=== PATIENT | male | born 1985 ===

== ENCOUNTER 2021-11-24 23:16 | Emergency (ER) | payer SELFPAY ==
[2021-11-24] MEDS ORDERED: ONDANSETRON 4 MG/2 ML INJ IV ONE (23:38)
[2021-11-24] MEDS ORDERED: SODIUM CHLORIDE 0.9% 1000 ML 1,000 ML IV ONE (23:38)
--- NOTE | 2021-11-24 23:59 | Emergency Department Report ---
HPI - General Chief Complaint: Overdose Time Seen by Provider: 11/24/21 23:32 - HPI HPI: Room 23 Patient is a 36-year-old male present with a chief complaint of suspected heroin overdose. EMS received a call for an unresponsive patient at a hotel. Upon their arrival states the patient was unresponsive on the bed next to a "white powdery substance" suspected to be heroin. EMS established an IV and administered a total of Narcan 4 mg which resulted in the patient waking up. Patient is now alert and states he is just confused on how he arrived in the emergency department. Otherwise patient denies having any complaints. ED Past Medical Hx - Past Medical History Previous Medical History?: No - Surgical History Past Surgical History?: No - Family History Family history: no significant - Social History Smoking Status: Never Smoker Substance Use Type: Alcohol (Occasional), Heroin (? Per EMS) - Medications Home Medications: Home Medications Medication Instructions Recorded Confirmed Last Taken Type Naloxone HCl [Narcan Nasal [place]] 4 mg NS ONCE PRN #1 bottle 11/25/21 Unknown Rx Ondansetron [Zofran ODT TAB] 8 mg PO Q8HR PRN #20 tab.rapdis 11/25/21 Unknown Rx ED Review of Systems ROS: Stated complaint: OVERDOSE Other details as noted in HPI Constitutional: no symptoms reported Eyes: denies: eye pain ENT: denies: throat pain Respiratory: no symptoms reported Cardiovascular: denies: chest pain Endocrine: no symptoms reported Gastrointestinal: denies: abdominal pain Genitourinary: denies: dysuria Musculoskeletal: denies: back pain Neurological: denies: headache Physical Exam - Physical Exam Vital Signs: Vital Signs 11/24/21 11/24/21 23:25 23:42 Temperature 99.8 F H Pulse Rate 96 H Respiratory 18 15 Rate Blood Pressure 114/68 O2 Sat by Pulse 94 97 Oximetry Physical Exam: GENERAL: The patient is well-developed well-nourished male lying on stretcher not appearing to be in acute distress. [] HEENT: Normocephalic. Atraumatic. Extraocular motions are intact. Patient has moist mucous membranes. NECK: Supple. Trachea midline CHEST/LUNGS: Clear to auscultation. There is no respiratory distress noted. HEART/CARDIOVASCULAR: Regular. There is tachycardia. There is no gallop rub or murmur. ABDOMEN: Abdomen is soft, nontender. Patient has normal bowel sounds. There is no abdominal distention. SKIN: There is no rash. There is no edema. There is no diaphoresis. NEURO: The patient is awake, alert, and oriented. The patient is cooperative. The patient has no focal neurologic deficits. The patient has normal speech. GCS 15 MUSCULOSKELETAL: There is no evidence of acute injury. ED Course Vital Signs 11/24/21 11/24/21 23:25 23:42 Temperature 99.8 F H Pulse Rate 96 H Respiratory 18 15 Rate Blood Pressure 114/68 O2 Sat by Pulse 94 97 Oximetry - Reevaluation(s) Reevaluation #1: 11/25/21 05:10 Patient states he feels improved ED Medical Decision Making - Lab Data Result diagrams: 11/25/21 00:49 11/25/21 00:49 Laboratory Tests 11/25/21 11/25/21 11/25/21 00:49 00:49 00:49 WBC 15.5 H RBC 4.69 Hgb 15.2 Hct 44.1 MCV 94 MCH 32 MCHC 35 H RDW 12.5 L Plt Count 263 Lymph % (Auto) 9.5 L [place] % (Auto) 5.9 Eos % (Auto) 0.1 Baso % (Auto) 0.1 Lymph # (Auto) 1.5 [place] # (Auto) 0.9 H Eos # (Auto) 0.0 Baso # (Auto) 0.0 Seg Neutrophils % 84.4 H Seg Neutrophils # 13.0 H Sodium 141 Potassium 4.3 Chloride 102.6 Carbon Dioxide 21 L Anion Gap 22 BUN 10 Creatinine 1.0 Estimated GFR > 60 BUN/Creatinine Ratio 10 Glucose 166 H Calcium 8.3 L Total Creatine Kinase 161 CK-MB (CK-2) 3.6 CK-MB (CK-2) Rel Index 2.2 Troponin T < 0.010 Urine Opiates Screen Urine Methadone Screen Ur Barbiturates Screen Ur Phencyclidine Scrn Ur Amphetamines Screen U Benzodiazepines Scrn Urine Cocaine Screen U Marijuana (THC) Screen Drugs of Abuse Note Plasma/Serum Alcohol 0.15 H 11/25/21 02:01 WBC RBC Hgb Hct MCV MCH MCHC RDW Plt Count Lymph % (Auto) [place] % (Auto) Eos % (Auto) Baso % (Auto) Lymph # (Auto) [place] # (Auto) Eos # (Auto) Baso # (Auto) Seg Neutrophils % Seg Neutrophils # Sodium Potassium Chloride Carbon Dioxide Anion Gap BUN Creatinine Estimated GFR BUN/Creatinine Ratio Glucose Calcium Total Creatine Kinase CK-MB (CK-2) CK-MB (CK-2) Rel Index Troponin T Urine Opiates Screen Presumptive negative Urine Methadone Screen Presumptive negative Ur Barbiturates Screen Presumptive negative Ur Phencyclidine Scrn Presumptive negative Ur Amphetamines Screen Presumptive negative U Benzodiazepines Scrn Presumptive negative Urine Cocaine Screen Presumptive positive U Marijuana (THC) Screen Presumptive negative Drugs of Abuse Note Disclamer Plasma/Serum Alcohol - EKG Data -: EKG Interpreted by Me EKG shows normal: sinus rhythm, axis Rate: tachycardia (112 bpm) - EKG Data When compared to previous EKG there are: previous EKG unavailable Interpretation: normal EKG - Differential Diagnosis Opiate overdose Critical care attestation.: If time is entered above; I have spent that time in minutes in the direct care of this critically ill patient, excluding procedure time. ED Disposition Clinical Impression: Overdose, Cocaine abuse Disposition: 01 HOME / SELF CARE / HOMELESS Is pt being admited?: No Does the pt Need Aspirin: No Condition: Stable Instructions: Substance Use Disorder Additional Instructions: Return to the emergency department should you develop worsening symptoms, inability to tolerate food or liquids, high fever or any other concerns Prescriptions: Naloxone HCl [Narcan Nasal [place]] 4 mg NS ONCE PRN #1 bottle PRN Reason: Overdose Ondansetron [Zofran ODT TAB] 8 mg PO Q8HR PRN #20 tab.rapdis PRN Reason: Nausea Referrals: JAZLYN KOEHLER MD [Primary Care Provider] - 3-5 Days Time of Disposition: 05:13
[2021-11-25 01:10] LABS: Hematocrit 44.1 % (35.5-45.6); Hemoglobin 15.2 gm/dl (11.8-15.2); Mean Corpuscular HGB Conc 35 % (32-34); Mean Corpuscular Volume 94 fl (84-94); Platelet Count 263 K/mm3 (140-440); Red Blood Count 4.69 M/mm3 (3.65-5.03); Red Cell Distribution Width 12.5 % (13.2-15.2)
[2021-11-25 01:28] LABS: Creatine Kinase MB 3.6 ng/mL (0.0-4.0)
[2021-11-25 01:29] LABS: BUN/Creatinine Ratio 10; Blood Urea Nitrogen 10 mg/dL (9-20); Calcium 8.3 mg/dL (8.4-10.2); Hemolysis Index 8
[2021-11-25 02:04] LABS: Basophils % (Auto) 0.1 % (0.0-1.8); Eosinophils % (Auto) 0.1 % (0.0-4.3); Lymphocytes # (Auto) 1.5 K/mm3 (1.2-5.4); Lymphocytes % (Auto) 9.5 % (13.4-35.0); Monocytes # (Auto) 0.9 K/mm3 (0.0-0.8); Monocytes % (Auto) 5.9 % (0.0-7.3)
[2021-11-25 02:25] LABS: Amphetamine Screen,Urine PRESUMPTIVE NEGATIVE; Benzodiazepines Screen,Urine PRESUMPTIVE NEGATIVE; Cannabinoid Screen,Urine PRESUMPTIVE NEGATIVE; Cocaine Screen,Urine PRESUMPTIVE POSITIVE; Methadone Screen,Urine PRESUMPTIVE NEGATIVE; Opiate Screen,Urine PRESUMPTIVE NEGATIVE
[2021-11-25] MEDS ORDERED: METOCLOPRAMIDE 10 MG/2 ML INJ IV ONE (04:39)
[2021-11-25 06:02] VITALS: BP 122/85
--- NOTE | 2021-11-26 09:56 | Electrocardiograph Report ---
[facility] Test Date: 2021-11-24 Test Time: 23:47:58 Pat Name: BETH ALVARADO Department: Room: Gender: M Cert Occupational Therapy Asst: : 1985 Requested By: CINTHIA CLEMENS Order Number: [id number] Reading MD: Triston Goddard Measurements Intervals [place] Rate: 112 P: 35 [place]: 167 QRS: 28 QRSD: 97 T: 42 QT: 336 QTc: 459 Interpretive Statements Sinus tachycardia No previous ECG available for comparison Electronically Signed On 11-26-2021 9:56:37 EDT by Triston Goddard
== END 2021-11-25 06:01 | disposition home or self-care (01) ==
LOC: ED 23:16
DX: F14.10 Cocaine abuse, uncomplicated (principal)
CPT/HCPCS: 36415; 80048; 80307; 82550; 82553; 84484; 85025; 93005; 96361; 96374; 96375; 99283; J2405; J2765; J7030; 80320; G0480